=== PATIENT | female | born 1980 | race Hispanic/Latino ===

== ENCOUNTER 2024-03-18 08:34 | Day surgery (SDC) | payer OTHER, MEDICARE ==
[2024-03-14 10:29] LABS: BASOPHILS # (AUTO) 0.05 K/uL (0.00-0.20); BASOPHILS % (AUTO) 0.7 % (0.0-5.0); EOSINOPHILS # (AUTO) 0.13 K/uL (0.00-0.70); EOSINOPHILS % (AUTO) 1.7 % (0.0-8.0); HEMATOCRIT 46.1 % (36-48); IMMATURE GRANULOCYTE ABSOLUTE 0.03 K/uL (0-1); LYMPHOCYTES # (AUTO) 2.3 K/uL (1.0-4.8); LYMPHOCYTES % (AUTO) 30.5 % (21.0-51.0); MEAN CORPUSCULAR HEMOGLOBIN 29.5 pg (27.0-33.0); MEAN CORPUSCULAR HGB CONC 32.1 g/dL (32.0-36.0); MONOCYTES # (AUTO) 0.3 K/uL (0.1-1.0); MONOCYTES % (AUTO) 3.5 % (3.0-13.0); NEUTROPHILS # (AUTO) 4.9 K/uL (1.8-7.7); NEUTROPHILS % (AUTO) 63.2 % (40.0-77.0); PLATELET COUNT (AUTO) 272 K/uL (130-400); RED BLOOD CELL COUNT(AUTO) 5.01 MIL/uL (4.00-5.50); RED CELL DISTRIBUTION WIDTH 13.7 % (11.0-15.5); WHITE BLOOD COUNT (AUTO) 7.7 K/uL (4.8-10.8)
[2024-03-14 10:42] LABS: ALBUMIN 3.3 g/dL (3.5-5.0); BILIRUBIN,TOTAL 0.3 mg/dL (0.2-1.0); POTASSIUM 4.6 mmol/L (3.5-5.1); TOTAL PROTEIN, SERUM 7.9 g/dL (6.0-8.3)
[2024-03-14 10:44] LABS: INR 0.94 (0.85-1.15); PROTHROMBIN TIME 10.2 SEC (9.6-11.6)
[2024-03-14 10:46] LABS: PARTIAL THROMBOPLASTIN TIME 29.5 SEC (26.3-35.5)
[2024-03-14 10:50] VITALS: BP 144/84; PULSE 70; RESP 18; TEMP 98.4
[2024-03-18] VITALS (9 sets, daily range): BP systolic 120–141; BP diastolic 69–80; PULSE 77–91; RESP 15–18; TEMP 96.5–98
[~2024-03-18] VITALS: Ht 165.1 cm; Wt 115.2 kg
[~2024-03-18 08:34] MED LIST: ALPR-412 PO; ARIP30TA60 PO; ATOR10 PO; CYCL-309 PO; DULO30CA52 PO; LEVO200C2 PO; TIRZ10PE SQ
[2024-03-18] MEDS: ceFAZolin SODIUM 2 GM VIAL ONE (09:43)
[2024-03-18] MEDS: 0.9%NACL 1000ML 1,000 ML IV ONE (09:43)
--- NOTE | 2024-03-18 09:52 | NUR ---
Patient appearing very anxious and aggressive to Staff. Refusal to give Urine or blood sample x 45 minutes explained multiple times need for Hcg results pre op. Voided and sample sent. Emotional support provided with education at length. PIV initiated on 2nd attempt and she yanked arm back and cursed at Nurse. To OR at this time
[2024-03-18] MEDS ORDERED: rocuRONium bROMide 10MG/1ML 5ML VL ONE (09:56)
[2024-03-18] MEDS ORDERED: LIDOCAINE PF 100MG/5ML (2%) SYRINGE 5ML ONE (09:56)
[2024-03-18] MEDS ORDERED: MIDAZOLAM HCL 1 MG/ML 2ML VIAL ONE (09:56)
[2024-03-18] MEDS ORDERED: proPOFol 10 MG/ML 20ML VIAL IV ONE (09:56)
[2024-03-18] MEDS ORDERED: SUCCINYLCHOLINE CHLORIDE 20 MG/ML 10 ML VIAL ONE (09:56)
[2024-03-18] MEDS ORDERED: FENTanyl CITRate PF 50 MCG/1 ML 2ML VIAL ONE (09:56)
[2024-03-18] MEDS: LIDOCAINE HCL 1% 20 ML VIAL ONE (10:26)
[2024-03-18] MEDS: BUPIvacaine/PF 0.25% 30ML VIAL IJ ONE (10:26)
[2024-03-18] MEDS: ceFAZolin SODIUM 1 GM VIAL ONE (10:27)
[2024-03-18] MEDS ORDERED: ePHEDrine SULFate 50 MG/ML AMPULE ONE (10:35)
--- NOTE | 2024-03-18 10:59 | OP ---
DATE OF PROCEDURE: 03/18/2024 PREOPERATIVE DIAGNOSES: Left groin cellulitis and abscess. POSTOPERATIVE DIAGNOSES: Left groin cellulitis and abscess. PROCEDURE PERFORMED: Incision and drainage, left groin abscess. SURGEON: Abraham Hoover M.D. ANESTHESIA: General. ESTIMATED BLOOD LOSS: Minimal. FINDINGS: Abscess, left groin case. SPECIMEN REMOVED: Pus, some was sent for Gram stain, culture and sensitivity. COMPLICATIONS: None. DESCRIPTION OF PROCEDURE: The patient was brought into the operating room. After proper identification, the patient was placed on the operating table in the supine position. General anesthesia was then administered and the patient was endotracheally intubated. Attention was then focussed in the area of the groin. The same was prepped and draped in the usual sterile fashion. An appropriate time-out was then carried out at this point. I then proceeded to make a cruciate incision in the most fluctuant aspect of the abscess. Incision was carried through skin and subcutaneous tissue until the abscess cavity was encountered. Pus was drained out, some of this was sent for Gram stain, culture and sensitivity. A Rebecca clamp was then used to break into various loculations of the abscess cavity. Once this was adequately drained, I proceeded to copiously irrigate the wound with antibiotic irrigation. Hemostasis was achieved using the Bovie cautery. I then proceeded to pack the wound with quarter-inch iodoform. Sterile dressings were then applied. Instrument and sponges count was found correct x 2. The patient was then woken up, extubated and taken to recovery room in stable condition. The patient tolerated the procedure well. TID: [id number] RECEIPT: [id number]
[2024-03-18] MEDS ORDERED: ACET-2079 PO (11:23)
[2024-03-18] MEDS ORDERED: SULF1TAB42 PO (11:23)
[2024-03-18] MEDS ORDERED: ONDA-243 PO (11:24)
--- NOTE | 2024-03-18 11:42 | NUR ---
PACKING INSTRUCTIONS GIVEN TO PT AND MOTHER, MOTHER STATES SHE KNOWS HOW TO DO PACKING AND HAS BEEN DOING IT ON PT
== END 2024-03-18 11:48 | disposition home or self-care (01) ==
LOC: DAH 08:34
PROVIDERS: ATTEND Surgery
DX: L02.214 Cutaneous abscess of groin (principal); L03.314 Cellulitis of groin; E66.01 Morbid (severe) obesity due to excess calories; I10 Essential (primary) hypertension; E03.9 Hypothyroidism, unspecified; F31.9 Bipolar disorder, unspecified; F41.9 Anxiety disorder, unspecified; E11.40 Type 2 diabetes mellitus with diabetic neuropathy, unspecified; M19.90 Unspecified osteoarthritis, unspecified site; Z79.01 Long term (current) use of anticoagulants; E78.00 Pure hypercholesterolemia, unspecified; Z79.899 Other long term (current) drug therapy
CPT/HCPCS: 80053; 84703; 85025; 85610; 85730; 36415; 10061; 87070; 87076; 87205; 82948 ×2; 81025; A6260; J0665; A4663; J3010; J0690 ×2; J0330; J7030; J3490 ×2; J2003; J2250; J2704; A4930; A4215; A4223; A4222; A4221; A4450; A4600